=== PATIENT | female | born 1970 | race Caucasian/White ===

== ENCOUNTER 2020-07-29 11:32 | Emergency (ER) | payer MEDICAID ==
[~2020-07-29] VITALS: Ht 152.4 cm; Wt 49.9 kg
[2020-07-29 11:38] VITALS: Ht 152.4 cm; Wt 49.9 kg
[2020-07-29 13:17] VITALS: BP 157/70
== END 2020-07-29 13:17 | disposition home or self-care (01) ==
LOC: ED 11:32
DX: S40.862A Insect bite (nonvenomous) of left upper arm, initial encounter (principal); E11.9 Type 2 diabetes mellitus without complications; W57.XXXA Bitten or stung by nonvenomous insect and other nonvenomous arthropods, initial encounter; Y93.89 Activity, other specified; Y92.89 Other specified places as the place of occurrence of the external cause; Y99.8 Other external cause status
CPT/HCPCS: J1200; J2930; J3490; J7613